=== PATIENT | female | born 1940 | race Caucasian/White ===

== ENCOUNTER 2016-06-13 09:42 | Inpatient (IN) | payer OTHER ==
[~2016-06-13] VITALS: Ht 170.2 cm; Wt 112.5 kg
[~2016-06-13 09:42] MED LIST: AMLODIPINE BESY10 MG PO; BACTERICIN30 GM TP; BACTRIM,SEPT1 TABLET PO; COUMADIN7.5 MG PO; CRESTOR20 MG PO; DULCOLAX10 MG PR; FLEET ENEMA-AD118 ML PR; FLONASE16 G1 BOTH NARES; FLUOXETINE HCL20 M1 PO; GLUCAGEN1 MG IM; GLUTOSE 1537.5 GM PO; IRON325 MG PO; ISOSORBIDE MONO60 MG PO; LEVEMIR FL100 UNITS/ SC; LEVEMIR100 UNIT/2 SC; LIDEX 0.05% CRE60 GM TP; LISINOPRIL30 MG PO; LO-DOSE ASPIRIN81 M1 PO; LO-DOSE ASPIRIN81 M2 PO; LYRICA75 MG PO; METFORMIN HCL1000 MG PO; METOPROLOL SUC100 MG PO; MILK OF MAGN PO; MIRALAX17 GM PO; NITROGLYCERIN0.4 MG SL; NOVOLOG PE100 UNITS/ SC; PERCOCET 10/1 TABLET PO; PERCOCET 7.51 TABLET PO; PROZAC20 MG PO; RANITIDINE HCL150 MG PO; SKELAXIN800 MG PO; TOPROL XL100 MG PO; VENTOLIN HFA18 GM IH; VOLTAREN 1% GE100 GM TP; XARELTO20 MG PO
[2016-06-13 10:16] LABS: POINT-OF-CARE METER ID UU13113702
[2016-06-13 10:47] LABS: POINT-OF-CARE METER ID UU13113702
[2016-06-13 10:51] LABS: HEMATOCRIT 35.2 % (36.0-46.0); MCH 25.1 PG (29.0-34.0); MCHC 31.5 G/DL (30.0-36.0); MCV 79.6 FL (83-99); MEAN PLAT.VOLUME 10.9 uM^3 (9.5-12.4); PLATELET COUNT 189 K/uL (156-360); RBC DIS.WIDTH-CV 16.9 % (11.8-14.6); RBC DIS.WIDTH-SD 47.9 % (39-53); RED BLOOD COUNT 4.42 M/uL (3.80-5.20); WHITE BLOOD COUNT 7.2 K/uL (4.1-10.2)
[2016-06-13 10:52] LABS: EOSINOPHIL (%) 0.4 % (0-5); IMMATURE GRANULOCYTE (%) 0.1 % (0.0-0.7); IMMATURE GRANULOCYTE COUNT 0.1 K/uL; LYMPHOCYTE COUNT 1.5 K/uL (1.0-2.8); MONOCYTE (%) 6.8 % (3-12); MONOCYTE COUNT 0.5 K/uL (0-0.8); NEUTROPHIL (%) 71.5 % (45-76); NEUTROPHIL COUNT 5.1 K/uL (1.8-6.4)
[2016-06-13 11:02] LABS: CHLORIDE 106 mEq/L (99-109); POTASSIUM 4.7 mEq/L (3.7-5.4); SODIUM 139 mEq/L (136-147)
[2016-06-13 11:05] LABS: ANION GAP 11 MEQ/L (2-14); GLUCOSE 175 mg/dL (70-99)
[2016-06-13 11:06] LABS: TOTAL BILIRUBIN 0.4 mg/dL (0.0-1.0)
[2016-06-13 11:08] LABS: ALKALINE PHOSPHATASE 125 IU/L (3-129); GFR ESTIMATE (CALCULATED) 31 mL/min/
[2016-06-13 11:09] LABS: UREA NITROGEN (BUN) 53 mg/dL (9-23)
[2016-06-13 11:17] LABS: TROP-I INTERPRETATION NEGATIVE; TROPONIN-I 0.02 ng/mL (0.0-0.30)
[2016-06-13 12:59] LABS: POINT-OF-CARE METER ID UU13113702
[2016-06-13 13:44] LABS: ADD MIUA? YES; BILIRUBIN NEGATIVE; BLOOD NEGATIVE; GLUCOSE (STRIP) NEGATIVE; KETONES NEGATIVE; LEUKOCYTES NEGATIVE; NITRITE NEGATIVE; PH, URINE 7.5 (5-8); PROTEIN (STRIP) 100; SPECIFIC GRAVITY 1.006 (1.000-1.030); UROBILINOGEN 0.2 MG/DL (0.2-1.0)
[2016-06-13 13:45] LABS: COLOR PALE STRAW ((YELLOW))
[2016-06-13 13:57] LABS: BACTERIA NONE SEEN /HPF; EPITHELIAL CELLS RARE /HPF; MUCUS TRACE /LPF; RED BLOOD CELLS 0-5 /HPF (0-5); UCUL ADDED? NO; WHITE BLOOD CELLS 0-5 /HPF (0-5)
[2016-06-13 14:21] LABS: POINT-OF-CARE METER ID UU13113702
[2016-06-13] MEDS ORDERED: LO-DOSE ASPIRIN81 M2 PO (14:37)
[2016-06-13] MEDS ORDERED: DIABETA2.5 MG PO (14:38)
[2016-06-13] MEDS ORDERED: FERROUS SULFAT325 MG PO ×2 (14:38→14:48)
[2016-06-13] MEDS ORDERED: LASIX40 MG PO (14:39)
[2016-06-13] MEDS ORDERED: ISOSORBIDE MONO60 MG PO (14:39)
[2016-06-13] MEDS ORDERED: LEVEMIR FL100 UNIT/1 SC (14:40)
[2016-06-13] MEDS ORDERED: ZESTRIL20 MG PO (14:41)
[2016-06-13] MEDS ORDERED: TOPROL XL100 MG PO (14:42)
[2016-06-13] MEDS ORDERED: NIFEDIPINE ER60 MG PO (14:43)
[2016-06-13] MEDS ORDERED: ZANTAC150 MG PO (14:43)
[2016-06-13] MEDS ORDERED: ASCORBIC ACID500 M3 PO (14:43)
[2016-06-13] MEDS ORDERED: ELIQUIS5 MG PO (14:45)
[2016-06-13] MEDS ORDERED: ZOLOFT50 MG PO (14:45)
[2016-06-13] MEDS ORDERED: PROBIOTIC1 EAC1 PO (14:50)
[2016-06-13] MEDS ORDERED: LYRICA75 MG PO (14:51)
[2016-06-13] MEDS ORDERED: TYLENOL ARTHRI650 MG PO ×2 (14:52→14:53)
[2016-06-13 14:54] LABS: POINT-OF-CARE METER ID UU13113702
[2016-06-13] MEDS ORDERED: DULCOLAX10 MG PR (14:54)
[2016-06-13] MEDS ORDERED: FLEET MINERAL133 ML PR (14:55)
[2016-06-13] MEDS ORDERED: MILK OF MAGN PO (14:55)
[2016-06-13] MEDS ORDERED: NITROSTAT0.4 MG SL (14:56)
[2016-06-13] MEDS ORDERED: OXYCODONE HCL10 MG PO (14:56)
[2016-06-13] MEDS ORDERED: MIRALAX17 GM PO (14:57)
[2016-06-13 16:01] LABS: POINT-OF-CARE METER ID UU13113702
[2016-06-13 16:47] LABS: BASE EXCESS 0.1 mEq/L (-3 to +3); BICARBONATE 24.7 mEq/L (22-26); CARBOXY HGB 1.1 % (0-5); METHEMOGLOBIN 1.2 % (0-1.5); PCO2 39 mm Hg (35-45); PO2 344 mm Hg (80-100); pH 7.41 (7.35-7.45)
[2016-06-13 16:49] LABS: COMMENTS - BLOOD GASES A+C+; DEVICE PB980; FI02 100 %; MECHANICAL RATE 16 resp/min; MODE A/C; SITE LR
[2016-06-13 16:50] LABS: PEEP 5 CM/H20; TIDAL VOLUME 550 ML
[2016-06-13 18:59] LABS: POINT-OF-CARE METER ID UU13113702
[2016-06-13 21:19] LABS: POINT-OF-CARE METER ID UU13113702
[2016-06-13 21:50] VITALS: BP 167/83
[2016-06-13 22:00] VITALS: BP 167/83
[2016-06-13 23:00] VITALS: BP 177/77
[2016-06-13 23:23] LABS: METH RESISTANT S AUREUS PCR POSITIVE (NEGATIVE)
[2016-06-13 23:25] LABS: PROBE CHECK PASS
[2016-06-13 23:40] LABS: BASE EXCESS 0.1 mEq/L (-3 to +3); BICARBONATE 23.5 mEq/L (22-26); CARBOXY HGB 1.3 % (0-5); COMMENTS - BLOOD GASES A+C+; DEVICE VENT; FI02 80 %; MECHANICAL RATE 16 resp/min; METHEMOGLOBIN 1.4 % (0-1.5); MODE A/C; PCO2 33 mm Hg (35-45); PO2 228 mm Hg (80-100); SITE LR; TOTAL RESP RATE 16 resp/min; pH 7.46 (7.35-7.45)
[2016-06-13 23:41] LABS: PEEP 5 CM/H20; TIDAL VOLUME 550 ML
[2016-06-14] VITALS (24 sets, daily range): BP systolic 118–166; BP diastolic 45–72
[2016-06-14 01:39] LABS: POINT-OF-CARE METER ID UU13113748; POINT-OF-CARE USER ID 609231305
[2016-06-14 05:53] LABS: POINT-OF-CARE METER ID UU13113748
[2016-06-14 09:07] LABS: POINT-OF-CARE METER ID UU13113748
[2016-06-14 09:26] LABS: EOSINOPHIL (%) 0 % (0-5); HEMATOCRIT 36.1 % (36.0-46.0); IMMATURE GRANULOCYTE (%) 0.3 % (0.0-0.7); LYMPHOCYTE COUNT 1.2 K/uL (1.0-2.8); MCHC 31.3 G/DL (30.0-36.0); MCV 79.9 FL (83-99); NEUTROPHIL (%) 74.6 % (45-76); NEUTROPHIL COUNT 6.5 K/uL (1.8-6.4); RBC DIS.WIDTH-CV 17.3 % (11.8-14.6); RBC DIS.WIDTH-SD 50.5 % (39-53); RED BLOOD COUNT 4.52 M/uL (3.80-5.20); WHITE BLOOD COUNT 8.7 K/uL (4.1-10.2)
[2016-06-14 09:27] LABS: ANION GAP 8 MEQ/L (2-14); CHLORIDE 106 MEQ/L (99-109); MAGNESIUM 2.1 mg/dl (1.3-2.7); POTASSIUM 4.8 MEQ/L (3.7-5.4); SAMPLE HEMOLYSIS CHECK 0; SAMPLE ICTERIC CHECK 0; SAMPLE LIPEMIA CHECK 0; SODIUM 138 MEQ/L (136-147)
[2016-06-14 09:31] LABS: USER ID TLW
[2016-06-14 09:33] LABS: GFR ESTIMATE (CALCULATED) 39 mL/min/; UREA NITROGEN (BUN) 45 mg/dL (9-23)
[2016-06-14 09:36] LABS: GLUCOSE 292 mg/dL (70-99); PLATELET COUNT UNABLE TO REPORT K/uL (156-360)
[2016-06-14 12:35] LABS: POINT-OF-CARE METER ID UU13113748
[2016-06-14 18:30] LABS: POINT-OF-CARE METER ID UU13113748
[2016-06-14 23:58] LABS: POINT-OF-CARE METER ID UU13113803
[2016-06-15] VITALS (21 sets, daily range): BP systolic 141–225; BP diastolic 52–108
[2016-06-15 05:11] LABS: POINT-OF-CARE METER ID UU13113748
[2016-06-15 07:07] LABS: ANION GAP 10 MEQ/L (2-14); CHLORIDE 105 MEQ/L (99-109); GFR ESTIMATE (CALCULATED) 36 mL/min/; GLUCOSE 219 mg/dL (70-99); MAGNESIUM 2.1 mg/dl (1.3-2.7); POTASSIUM 5.2 MEQ/L (3.7-5.4); SAMPLE HEMOLYSIS CHECK 0; SAMPLE ICTERIC CHECK 0; SAMPLE LIPEMIA CHECK 0; SODIUM 138 MEQ/L (136-147); UREA NITROGEN (BUN) 49 mg/dL (9-23)
[2016-06-15 07:32] LABS: EOSINOPHIL (%) 0 % (0-5); HEMATOCRIT 34.4 % (36.0-46.0); IMMATURE GRANULOCYTE (%) 0.2 % (0.0-0.7); LYMPHOCYTE COUNT 1.3 K/uL (1.0-2.8); MCH 25.4 PG (29.0-34.0); MCV 79.4 FL (83-99); MONOCYTE (%) 3.6 % (3-12); MONOCYTE COUNT 0.3 K/uL (0-0.8); NEUTROPHIL (%) 82.3 % (45-76); NEUTROPHIL COUNT 7.6 K/uL (1.8-6.4); RBC DIS.WIDTH-CV 17.5 % (11.8-14.6); RED BLOOD COUNT 4.33 M/uL (3.80-5.20); WHITE BLOOD COUNT 9.3 K/uL (4.1-10.2)
[2016-06-15 08:29] LABS: MEAN PLAT.VOLUME 11.7 uM^3 (9.5-12.4); PLAT.SUFFICIENCY ADEQUATE; USER ID TLW
[2016-06-15 08:30] LABS: PLATELET COUNT 197 K/uL (156-360)
[2016-06-16] VITALS (10 sets, daily range): BP systolic 150–186; BP diastolic 60–84
[2016-06-16 06:42] LABS: HEMATOCRIT 36.2 % (36.0-46.0); MCH 25.3 PG (29.0-34.0); MCHC 31.8 G/DL (30.0-36.0); MCV 79.7 FL (83-99); MEAN PLAT.VOLUME 11.5 uM^3 (9.5-12.4); PLATELET COUNT 201 K/uL (156-360); RBC DIS.WIDTH-CV 17.7 % (11.8-14.6); RBC DIS.WIDTH-SD 51.8 % (39-53); RED BLOOD COUNT 4.54 M/uL (3.80-5.20); WHITE BLOOD COUNT 10.8 K/uL (4.1-10.2)
[2016-06-16 06:51] LABS: EOSINOPHIL (%) 0 % (0-5); IMMATURE GRANULOCYTE (%) 0.1 % (0.0-0.7); MONOCYTE (%) 6.6 % (3-12); MONOCYTE COUNT 0.7 K/uL (0-0.8); NEUTROPHIL (%) 74.2 % (45-76)
[2016-06-16 07:06] LABS: ANION GAP 11 MEQ/L (2-14); CHLORIDE 107 MEQ/L (99-109); GFR ESTIMATE (CALCULATED) 39 mL/min/; GLUCOSE 149 mg/dL (70-99); MAGNESIUM 2.2 mg/dl (1.3-2.7); POTASSIUM 4.9 MEQ/L (3.7-5.4); SAMPLE HEMOLYSIS CHECK 1; SAMPLE ICTERIC CHECK 0; SAMPLE LIPEMIA CHECK 0; SODIUM 141 MEQ/L (136-147); UREA NITROGEN (BUN) 51 mg/dL (9-23)
[2016-06-16 08:37] LABS: POINT-OF-CARE METER ID UU14174216; POINT-OF-CARE USER ID NUTSLF44
[2016-06-16 12:21] LABS: POINT-OF-CARE USER ID NUTSLF44
[2016-06-16 20:41] LABS: POINT-OF-CARE USER ID AHSUCEG
[2016-06-17 00:05] VITALS: BP 126/84
[2016-06-17 04:24] VITALS: BP 148/73
[2016-06-17 06:47] LABS: HEMATOCRIT 38.6 % (36.0-46.0); MCH 24.1 PG (29.0-34.0); MCHC 30.6 G/DL (30.0-36.0); MCV 78.9 FL (83-99); MEAN PLAT.VOLUME 11.1 uM^3 (9.5-12.4); PLATELET COUNT 238 K/uL (156-360); RBC DIS.WIDTH-CV 17.3 % (11.8-14.6); RBC DIS.WIDTH-SD 49.4 % (39-53); RED BLOOD COUNT 4.89 M/uL (3.80-5.20); WHITE BLOOD COUNT 12.6 K/uL (4.1-10.2)
[2016-06-17 06:57] LABS: EOSINOPHIL (%) 0.6 % (0-5); EOSINOPHIL COUNT 0.1 K/uL (0-0.3); IMMATURE GRANULOCYTE (%) 0.2 % (0.0-0.7); LYMPHOCYTE COUNT 4.7 K/uL (1.0-2.8); MONOCYTE (%) 12.2 % (3-12); MONOCYTE COUNT 1.5 K/uL (0-0.8); NEUTROPHIL (%) 49.5 % (45-76); NEUTROPHIL COUNT 6.2 K/uL (1.8-6.4)
[2016-06-17 07:11] LABS: ANION GAP 8 MEQ/L (2-14); CHLORIDE 105 MEQ/L (99-109); GFR ESTIMATE (CALCULATED) 36 mL/min/; MAGNESIUM 1.9 mg/dl (1.3-2.7); POTASSIUM 4.1 MEQ/L (3.7-5.4); SAMPLE HEMOLYSIS CHECK 0; SAMPLE ICTERIC CHECK 0; SAMPLE LIPEMIA CHECK 0; SODIUM 140 MEQ/L (136-147); UREA NITROGEN (BUN) 52 mg/dL (9-23)
[2016-06-17 07:13] LABS: GLUCOSE 104 mg/dL (70-99)
[2016-06-17 08:00] VITALS: BP 114/64
[2016-06-17 11:50] VITALS: BP 148/50
[2016-06-17 16:08] LABS: HEMATOCRIT 34.3 % (36.0-46.0); MCH 25.1 PG (29.0-34.0); MCHC 31.5 G/DL (30.0-36.0); MCV 79.6 FL (83-99); MEAN PLAT.VOLUME 11.1 uM^3 (9.5-12.4); PLATELET COUNT 206 K/uL (156-360); RBC DIS.WIDTH-SD 49.8 % (39-53); RED BLOOD COUNT 4.31 M/uL (3.80-5.20); WHITE BLOOD COUNT 9.6 K/uL (4.1-10.2)
[2016-06-17 16:10] VITALS: BP 155/72
[2016-06-17 19:30] VITALS: BP 137/67
[2016-06-18] VITALS (9 sets, daily range): BP systolic 97–178; BP diastolic 57–79
[2016-06-18 06:17] LABS: HEMATOCRIT 31.5 % (36.0-46.0); MCH 25.1 PG (29.0-34.0); MCHC 31.4 G/DL (30.0-36.0); MCV 79.7 FL (83-99); MEAN PLAT.VOLUME 11.7 uM^3 (9.5-12.4); PLATELET COUNT 195 K/uL (156-360); RBC DIS.WIDTH-CV 16.8 % (11.8-14.6); RBC DIS.WIDTH-SD 49.6 % (39-53); RED BLOOD COUNT 3.95 M/uL (3.80-5.20); WHITE BLOOD COUNT 11.1 K/uL (4.1-10.2)
[2016-06-18 06:42] LABS: ANION GAP 7 MEQ/L (2-14); CHLORIDE 106 MEQ/L (99-109); GFR ESTIMATE (CALCULATED) 43 mL/min/; GLUCOSE 146 mg/dL (70-99); MAGNESIUM 1.9 mg/dl (1.3-2.7); POTASSIUM 4.2 MEQ/L (3.7-5.4); SAMPLE HEMOLYSIS CHECK 0; SAMPLE ICTERIC CHECK 0; SAMPLE LIPEMIA CHECK 0; SODIUM 140 MEQ/L (136-147); TOTAL BILIRUBIN 0.4 MG/DL (0.0-1.0); UREA NITROGEN (BUN) 71 mg/dL (9-23)
[2016-06-18 06:45] LABS: ALKALINE PHOSPHATASE 65 IU/L (3-129)
[2016-06-18 06:52] LABS: EOSINOPHIL (%) 1.4 % (0-5); EOSINOPHIL COUNT 0.2 K/uL (0-0.3); IMMATURE GRANULOCYTE (%) 0.1 % (0.0-0.7); LYMPHOCYTE COUNT 4.2 K/uL (1.0-2.8); MONOCYTE (%) 11.9 % (3-12); MONOCYTE COUNT 1.3 K/uL (0-0.8); NEUTROPHIL (%) 48.6 % (45-76); NEUTROPHIL COUNT 5.4 K/uL (1.8-6.4)
[2016-06-19 03:16] VITALS: BP 128/80
[2016-06-19 06:54] LABS: HEMATOCRIT 33.2 % (36.0-46.0); MCH 23.9 PG (29.0-34.0); MCHC 30.1 G/DL (30.0-36.0); MCV 79.4 FL (83-99); MEAN PLAT.VOLUME 11.4 uM^3 (9.5-12.4); PLATELET COUNT 207 K/uL (156-360); RBC DIS.WIDTH-CV 16.8 % (11.8-14.6); RED BLOOD COUNT 4.18 M/uL (3.80-5.20); WHITE BLOOD COUNT 12.1 K/uL (4.1-10.2)
[2016-06-19 07:25] LABS: ANION GAP 9 MEQ/L (2-14); CHLORIDE 108 MEQ/L (99-109); GFR ESTIMATE (CALCULATED) 52 mL/min/; GLUCOSE 110 mg/dL (70-99); MAGNESIUM 1.9 mg/dl (1.3-2.7); POTASSIUM 4.3 MEQ/L (3.7-5.4); SAMPLE HEMOLYSIS CHECK 0; SAMPLE ICTERIC CHECK 0; SAMPLE LIPEMIA CHECK 0; SODIUM 142 MEQ/L (136-147); UREA NITROGEN (BUN) 61 mg/dL (9-23)
[2016-06-19 07:29] LABS: EOSINOPHIL (%) 1.6 % (0-5); EOSINOPHIL COUNT 0.2 K/uL (0-0.3); IMMATURE GRANULOCYTE (%) 0.2 % (0.0-0.7); LYMPHOCYTE COUNT 3.6 K/uL (1.0-2.8); MONOCYTE (%) 10.6 % (3-12); MONOCYTE COUNT 1.3 K/uL (0-0.8)
[2016-06-19 07:45] VITALS: BP 146/66
[2016-06-19 12:07] VITALS: BP 118/58
[2016-06-19 16:18] VITALS: BP 146/60
[2016-06-19 20:12] VITALS: BP 167/71
[2016-06-20 00:15] VITALS: BP 177/73
[2016-06-20 04:19] VITALS: BP 134/75
[2016-06-20 07:27] VITALS: BP 177/85
[2016-06-20 07:31] LABS: HEMATOCRIT 31.1 % (36.0-46.0); MCH 24.9 PG (29.0-34.0); MCHC 31.2 G/DL (30.0-36.0); MCV 79.9 FL (83-99); MEAN PLAT.VOLUME 11.1 uM^3 (9.5-12.4); PLATELET COUNT 175 K/uL (156-360); RBC DIS.WIDTH-CV 16.9 % (11.8-14.6); RBC DIS.WIDTH-SD 49.4 % (39-53); RED BLOOD COUNT 3.89 M/uL (3.80-5.20)
[2016-06-20 07:48] LABS: EOSINOPHIL (%) 2.7 % (0-5); EOSINOPHIL COUNT 0.3 K/uL (0-0.3); IMMATURE GRANULOCYTE (%) 0.3 % (0.0-0.7); LYMPHOCYTE COUNT 3.5 K/uL (1.0-2.8); MONOCYTE COUNT 0.8 K/uL (0-0.8); NEUTROPHIL (%) 54.2 % (45-76); NEUTROPHIL COUNT 5.4 K/uL (1.8-6.4)
[2016-06-20 07:58] LABS: ANION GAP 8 MEQ/L (2-14); CHLORIDE 109 MEQ/L (99-109); GFR ESTIMATE (CALCULATED) 52 mL/min/; GLUCOSE 103 mg/dL (70-99); POTASSIUM 4.3 MEQ/L (3.7-5.4); SAMPLE HEMOLYSIS CHECK 0; SAMPLE ICTERIC CHECK 0; SAMPLE LIPEMIA CHECK 0; SODIUM 143 MEQ/L (136-147); UREA NITROGEN (BUN) 57 mg/dL (9-23)
[2016-06-20] MEDS ORDERED: IMDUR60 MG PO (12:35)
[2016-06-20] MEDS ORDERED: NOVOLOG PE100 UNITS/ SC (12:37)
[2016-06-20] MEDS ORDERED: PROCARDIA XL90 MG PO (12:38)
== END 2016-06-20 15:00 | DRG 208 ==
LOC: EME 09:42 → EDOF 15:32 → 4EAST 15:32 → 4WEST 15:32 → EDOF 20:32 → 4WEST 21:47 → 4EAST 06-15 22:50 → 2EAST 06-16 12:12
PROVIDERS: Emergency Medicine; Internal Medicine; Internal Medicine Nephrology; Surgery
DX: J96.00 Acute respiratory failure, unspecified whether with hypoxia or hypercapnia (principal); N17.9 Acute kidney failure, unspecified; J44.9 Chronic obstructive pulmonary disease, unspecified; I95.9 Hypotension, unspecified; E11.649 Type 2 diabetes mellitus with hypoglycemia without coma; I48.0 Paroxysmal atrial fibrillation; Z89.612 Acquired absence of left leg above knee; T78.3XXA Angioneurotic edema, initial encounter; J39.2 Other diseases of pharynx; S00.03XA Contusion of scalp, initial encounter; W06.XXXA Fall from bed, initial encounter; Y92.122 Bedroom in nursing home as the place of occurrence of the external cause; I25.10 Atherosclerotic heart disease of native coronary artery without angina pectoris; Z95.1 Presence of aortocoronary bypass graft; Z98.84 Bariatric surgery status; E66.9 Obesity, unspecified; E78.5 Hyperlipidemia, unspecified; G89.29 Other chronic pain; R55 Syncope and collapse; M19.90 Unspecified osteoarthritis, unspecified site; G47.33 Obstructive sleep apnea (adult) (pediatric); I73.9 Peripheral vascular disease, unspecified; J98.8 Other specified respiratory disorders; M54.5 Low back pain; R04.0 Epistaxis; I25.2 Old myocardial infarction; I10 Essential (primary) hypertension; T46.4X5A Adverse effect of angiotensin-converting-enzyme inhibitors, initial encounter; F32.9 Major depressive disorder, single episode, unspecified; Y84.8 Other medical procedures as the cause of abnormal reaction of the patient, or of later complication, without mention of misadventure at the time of the procedure; Z68.38 Body mass index [BMI] 38.0-38.9, adult
CPT/HCPCS: 36600; 70450; 71010; 71020; 80048; 80053; 81003; 82803; 82948; 83605; 83735; 84100; 84484; 85025; 85025 91; 85027; 86850; 86870; 86880 90; 86885 90; 86900; 86900 90; 86901; 86901 90; 86904 90; 86906 90; 86920; 87070; 87205; 87641; 94002; 94003; 94799; 99281; 99285; J0360; J1100; J1200; J1644; J1650; J1815; J1940; J2704; J2920; J7030; J7040; J7120; J7512; S0028

== ENCOUNTER 2016-07-27 10:18 | Inpatient (IN) | payer OTHER ==
[~2016-07-27] VITALS: Ht 170.2 cm; Wt 125.5 kg
[~2016-07-27 10:18] MED LIST changes: +ASCORBIC ACID500 M3 PO; +DIABETA2.5 MG PO; +ELIQUIS5 MG PO; +FERROUS SULFAT325 MG PO; +FLEET MINERAL133 ML PR; +IMDUR60 MG PO; +LASIX40 MG PO; +LEVEMIR FL100 UNIT/1 SC; +NIFEDIPINE ER60 MG PO; +NITROSTAT0.4 MG SL; +OXYCODONE HCL10 MG PO; +PROBIOTIC1 EAC1 PO; +PROCARDIA XL90 MG PO; +TYLENOL ARTHRI650 MG PO; +ZANTAC150 MG PO; +ZESTRIL20 MG PO; +ZOLOFT50 MG PO
[2016-07-27 11:26] LABS: BASOPHIL COUNT 0.1 K/uL (0-0.1); EOSINOPHIL (%) 0.9 % (0-5); EOSINOPHIL COUNT 0.1 K/uL (0-0.3); IMMATURE GRANULOCYTE (%) 0.3 % (0.0-0.7); INSTRUMENT ABS NEUTROPHIL CT 5.6 K/uL; LYMPHOCYTE COUNT 2.4 K/uL (1.0-2.8); MCH 24.4 PG (29.0-34.0); MCV 81.3 FL (83-99); MEAN PLAT.VOLUME 11.3 uM^3 (9.5-12.4); MONOCYTE (%) 11.5 % (3-12); MONOCYTE COUNT 1.1 K/uL (0-0.8); NEUTROPHIL (%) 61.1 % (45-76); NEUTROPHIL COUNT 5.6 K/uL (1.8-6.4); PLATELET COUNT 231 K/uL (156-360); RBC DIS.WIDTH-CV 18.3 % (11.8-14.6); RBC DIS.WIDTH-SD 54.2 % (39-53); RED BLOOD COUNT 4.06 M/uL (3.80-5.20)
[2016-07-27 11:31] LABS: WHITE BLOOD COUNT 9.2 K/uL (4.1-10.2)
[2016-07-27 11:36] LABS: CHLORIDE 109 mEq/L (99-109); INTER. NORMALIZED RATIO 1.2; POTASSIUM 4.2 mEq/L (3.7-5.4); PROTHROMBIN TIME 12.6 (9.2-11.2); SODIUM 142 mEq/L (136-147)
[2016-07-27 11:38] LABS: GLUCOSE 131 mg/dL (70-99)
[2016-07-27 11:40] LABS: ANION GAP 11 MEQ/L (2-14); TOTAL BILIRUBIN 0.3 mg/dL (0.0-1.0)
[2016-07-27 11:42] LABS: ALKALINE PHOSPHATASE 112 IU/L (3-129); GFR ESTIMATE (CALCULATED) 31 mL/min/
[2016-07-27 11:43] LABS: UREA NITROGEN (BUN) 75 mg/dL (9-23)
[2016-07-27 11:46] LABS: TROP-I INTERPRETATION NEGATIVE; TROPONIN-I 0.04 ng/mL (0.0-0.30)
[2016-07-27] MEDS ORDERED: DAKINS SOLUTIO473 ML TP ×2 (13:24→14:19)
[2016-07-27] MEDS ORDERED: INVANZ1 GM IV (13:25)
[2016-07-27] MEDS ORDERED: TOPROL XL100 MG PO (13:26)
[2016-07-27] MEDS ORDERED: LASIX40 MG PO (13:26)
[2016-07-27] MEDS ORDERED: NIFEDIPINE ER90 MG PO (13:28)
[2016-07-27] MEDS ORDERED: IMDUR60 MG PO (13:31)
[2016-07-27] MEDS ORDERED: GLUCOPHAGE500 MG PO (13:33)
[2016-07-27] MEDS ORDERED: PROBIOTIC250 MG PO (13:34)
[2016-07-27] MEDS ORDERED: NOVOLOG PE100 UNITS/ SC (13:40)
[2016-07-27] MEDS ORDERED: GLUCAGON1 MG IM (13:46)
[2016-07-27] MEDS ORDERED: GLUCOSE GEL15 GM PO (13:48)
[2016-07-27 22:00] VITALS: BP 178/81
[2016-07-27 22:12] VITALS: BP 178/81
[2016-07-28] VITALS (7 sets, daily range): BP systolic 132–185; BP diastolic 61–86
[2016-07-28 14:42] LABS: METH RESISTANT S AUREUS PCR NEGATIVE (NEGATIVE)
[2016-07-28 14:44] LABS: PROBE CHECK PASS; SPECIMEN PROCESSING CONTROL PASS
[2016-07-29 03:57] VITALS: BP 124/58
[2016-07-29 05:19] LABS: EOSINOPHIL (%) 0.2 % (0-5); HEMATOCRIT 31.1 % (36.0-46.0); IMMATURE GRANULOCYTE (%) 0.6 % (0.0-0.7); IMMATURE GRANULOCYTE COUNT 0.1 K/uL; INSTRUMENT ABS NEUTROPHIL CT 6.9 K/uL; LYMPHOCYTE COUNT 2.2 K/uL (1.0-2.8); MCH 24.1 PG (29.0-34.0); MCHC 29.9 G/DL (30.0-36.0); MCV 80.6 FL (83-99); MEAN PLAT.VOLUME 11.8 uM^3 (9.5-12.4); MONOCYTE (%) 12.7 % (3-12); MONOCYTE COUNT 1.3 K/uL (0-0.8); NEUTROPHIL (%) 65.4 % (45-76); NEUTROPHIL COUNT 6.9 K/uL (1.8-6.4); PLATELET COUNT 205 K/uL (156-360); RBC DIS.WIDTH-CV 18.5 % (11.8-14.6); RBC DIS.WIDTH-SD 53.5 % (39-53); RED BLOOD COUNT 3.86 M/uL (3.80-5.20); WHITE BLOOD COUNT 10.5 K/uL (4.1-10.2)
[2016-07-29 05:39] LABS: ANION GAP 8 MEQ/L (2-14); CHLORIDE 107 MEQ/L (99-109); GFR ESTIMATE (CALCULATED) 31 mL/min/; GLUCOSE 155 mg/dL (70-99); POTASSIUM 3.8 MEQ/L (3.7-5.4); SAMPLE HEMOLYSIS CHECK 0; SAMPLE ICTERIC CHECK 0; SAMPLE LIPEMIA CHECK 0; SODIUM 140 MEQ/L (136-147); UREA NITROGEN (BUN) 73 mg/dL (9-23)
[2016-07-29 07:40] VITALS: BP 160/70
[2016-07-29 11:17] VITALS: BP 142/65
[2016-07-29 11:26] LABS: POINT-OF-CARE METER ID UU14188577
[2016-07-29 15:04] VITALS: BP 157/71
[2016-07-29 16:51] LABS: POINT-OF-CARE METER ID UU14188577
[2016-07-29 19:45] VITALS: BP 159/67
[2016-07-29 23:39] VITALS: BP 153/66
[2016-07-30] VITALS (7 sets, daily range): BP systolic 136–194; BP diastolic 64–92
[2016-07-30 16:19] LABS: POINT-OF-CARE METER ID UU14188577
[2016-07-31 01:45] VITALS: BP 172/74
[2016-07-31 03:49] VITALS: BP 150/67
[2016-07-31 06:27] LABS: POINT-OF-CARE METER ID UU14188577
[2016-07-31 06:40] LABS: ANION GAP 8 MEQ/L (2-14); CHLORIDE 113 MEQ/L (99-109); GFR ESTIMATE (CALCULATED) 52 mL/min/; GLUCOSE 136 mg/dL (70-99); POTASSIUM 4.3 MEQ/L (3.7-5.4); SAMPLE HEMOLYSIS CHECK 0; SAMPLE ICTERIC CHECK 0; SAMPLE LIPEMIA CHECK 0; SODIUM 147 MEQ/L (136-147); UREA NITROGEN (BUN) 54 mg/dL (9-23)
[2016-07-31 07:41] VITALS: BP 145/65
[2016-07-31 11:31] VITALS: BP 169/74
[2016-07-31 12:02] LABS: POINT-OF-CARE METER ID UU14188577
[2016-07-31] MEDS ORDERED: KEFLEX500 MG PO (12:57)
[2016-07-31] MEDS ORDERED: LOSARTAN POTASS25 MG PO (12:58)
[2016-07-31 16:17] VITALS: BP 170/78
[2016-07-31 17:46] LABS: POINT-OF-CARE METER ID UU14188577
== END 2016-07-31 19:40 | DRG 603 ==
LOC: EME 10:18 → 3EAST 13:40 → EDOF 13:40 → 3EAST 21:40
PROVIDERS: Emergency Medicine; Internal Medicine
DX: L03.113 Cellulitis of right upper limb (principal); N61.0 Mastitis without abscess; M79.3 Panniculitis, unspecified; N17.9 Acute kidney failure, unspecified; I13.0 Hypertensive heart and chronic kidney disease with heart failure and stage 1 through stage 4 chronic kidney disease, or unspecified chronic kidney disease; I50.32 Chronic diastolic (congestive) heart failure; E11.22 Type 2 diabetes mellitus with diabetic chronic kidney disease; N18.3 Chronic kidney disease, stage 3 (moderate); I89.0 Lymphedema, not elsewhere classified; E66.01 Morbid (severe) obesity due to excess calories; I48.2 Chronic atrial fibrillation; I25.10 Atherosclerotic heart disease of native coronary artery without angina pectoris; I87.2 Venous insufficiency (chronic) (peripheral); L30.8 Other specified dermatitis; G47.33 Obstructive sleep apnea (adult) (pediatric); I44.1 Atrioventricular block, second degree; I44.5 Left posterior fascicular block; E78.5 Hyperlipidemia, unspecified; J44.9 Chronic obstructive pulmonary disease, unspecified; Z68.41 Body mass index [BMI] 40.0-44.9, adult; Z89.612 Acquired absence of left leg above knee; Z95.1 Presence of aortocoronary bypass graft; Z98.84 Bariatric surgery status; I25.2 Old myocardial infarction; Z79.01 Long term (current) use of anticoagulants
CPT/HCPCS: 71010; 76642; 80048; 80053; 82948; 83880; 84484; 85025; 85610; 85730; 87641; 93005; 93306; 93971; 94799; 99202; 99281; 99285; J0360; J0690; J7050

== ENCOUNTER 2016-08-04 18:27 | Inpatient (IN) | payer OTHER ==
[~2016-08-04] VITALS: Ht 170.2 cm; Wt 126.6 kg
[~2016-08-04 18:27] MED LIST changes: +DAKINS SOLUTIO473 ML TP; +GLUCAGON1 MG IM; +GLUCOPHAGE500 MG PO; +GLUCOSE GEL15 GM PO; +INVANZ1 GM IV; +KEFLEX500 MG PO; +LOSARTAN POTASS25 MG PO; +NIFEDIPINE ER90 MG PO; +PROBIOTIC250 MG PO
[2016-08-04 19:21] LABS: HEMATOCRIT 33.3 % (36.0-46.0); MCH 24.5 PG (29.0-34.0); MCHC 30.6 G/DL (30.0-36.0); MCV 79.9 FL (83-99); MEAN PLAT.VOLUME 10.9 uM^3 (9.5-12.4); PLATELET COUNT 209 K/uL (156-360); RBC DIS.WIDTH-CV 18.3 % (11.8-14.6); RED BLOOD COUNT 4.17 M/uL (3.80-5.20)
[2016-08-04 19:23] LABS: WHITE BLOOD COUNT 13.6 K/uL (4.1-10.2)
[2016-08-04 19:28] LABS: CHLORIDE 112 mEq/L (99-109); POTASSIUM 4.3 mEq/L (3.7-5.4); SODIUM 144 mEq/L (136-147)
[2016-08-04 19:30] LABS: GLUCOSE 146 mg/dL (70-99)
[2016-08-04 19:31] LABS: ANION GAP 10 MEQ/L (2-14)
[2016-08-04 19:34] LABS: GFR ESTIMATE (CALCULATED) 47 mL/min/
[2016-08-04 19:35] LABS: UREA NITROGEN (BUN) 37 mg/dL (9-23)
[2016-08-04 19:42] LABS: TROP-I INTERPRETATION NEGATIVE; TROPONIN-I 0.01 ng/mL (0.0-0.30)
[2016-08-04] MEDS ORDERED: LOSARTAN POTASS50 MG PO (21:25)
[2016-08-04] MEDS ORDERED: CEPHALEXIN500 MG PO (21:30)
[2016-08-04] MEDS ORDERED: DAKINS SOLUTIO473 M1 TP (21:31)
[2016-08-04] MEDS ORDERED: TYLENOL REGULA325 MG PO (21:34)
[2016-08-04 22:26] VITALS: BP 174/76
[2016-08-05 04:34] VITALS: BP 178/84
[2016-08-05 06:29] LABS: POINT-OF-CARE METER ID UU14162508
[2016-08-05 08:00] VITALS: BP 130/83
[2016-08-05 08:29] LABS: D-DIMER ELISA 1.65 mg/L FEU (< 0.57)
[2016-08-05 12:04] LABS: POINT-OF-CARE METER ID UU14162508
[2016-08-05 12:22] LABS: POINT-OF-CARE METER ID UU14162508
[2016-08-05 15:52] LABS: METH RESISTANT S AUREUS PCR NEGATIVE (NEGATIVE)
[2016-08-05 15:55] LABS: PROBE CHECK PASS; SPECIMEN PROCESSING CONTROL PASS
[2016-08-05 16:00] VITALS: BP 165/97
[2016-08-05 16:31] LABS: POINT-OF-CARE METER ID UU14162508
[2016-08-05 16:31] LABS: POINT-OF-CARE METER ID UU14162508
[2016-08-05 19:52] VITALS: BP 170/78
[2016-08-05 23:08] LABS: POINT-OF-CARE METER ID UU14162508
[2016-08-06 00:05] VITALS: BP 176/84
[2016-08-06 04:21] VITALS: BP 188/89
[2016-08-06 06:23] LABS: POINT-OF-CARE METER ID UU14162508
[2016-08-06 07:01] VITALS: BP 182/82
[2016-08-06 11:35] LABS: POINT-OF-CARE METER ID UU14162508
[2016-08-06 12:01] VITALS: BP 184/81
[2016-08-06 16:15] VITALS: BP 170/83
[2016-08-06 16:31] LABS: POINT-OF-CARE METER ID UU14162508
[2016-08-06 23:37] VITALS: BP 176/72
[2016-08-07 03:21] VITALS: BP 170/62
[2016-08-07 08:00] VITALS: BP 178/81
[2016-08-07 12:00] VITALS: BP 148/67
[2016-08-07 16:00] VITALS: BP 171/79
[2016-08-07 20:12] VITALS: BP 150/70
[2016-08-08 07:33] LABS: ANION GAP 8 MEQ/L (2-14); CHLORIDE 106 MEQ/L (99-109); GFR ESTIMATE (CALCULATED) 34 mL/min/; GLUCOSE 132 mg/dL (70-99); SAMPLE HEMOLYSIS CHECK 0; SAMPLE ICTERIC CHECK 0; SAMPLE LIPEMIA CHECK 0; SODIUM 141 MEQ/L (136-147); UREA NITROGEN (BUN) 34 mg/dL (9-23)
[2016-08-08 08:00] VITALS: BP 159/68
[2016-08-08 12:00] VITALS: BP 174/79
[2016-08-08 12:07] LABS: POINT-OF-CARE METER ID UU14162508
[2016-08-08 16:03] VITALS: BP 145/67
[2016-08-08 16:17] LABS: POINT-OF-CARE METER ID UU14162508
[2016-08-08 22:18] VITALS: BP 130/61
[2016-08-08 22:34] LABS: POINT-OF-CARE METER ID UU14162508
[2016-08-08 23:57] VITALS: BP 128/62
[2016-08-09 03:53] VITALS: BP 145/66
[2016-08-09 07:10] VITALS: BP 142/67
[2016-08-09 07:38] LABS: ANION GAP 9 MEQ/L (2-14); CHLORIDE 108 MEQ/L (99-109); GFR ESTIMATE (CALCULATED) 34 mL/min/; GLUCOSE 122 mg/dL (70-99); POTASSIUM 4.7 MEQ/L (3.7-5.4); SAMPLE HEMOLYSIS CHECK 0; SAMPLE ICTERIC CHECK 0; SAMPLE LIPEMIA CHECK 0; SODIUM 141 MEQ/L (136-147); UREA NITROGEN (BUN) 36 mg/dL (9-23)
[2016-08-09 11:59] LABS: POINT-OF-CARE METER ID UU14162508
[2016-08-09 12:00] VITALS: BP 162/60
[2016-08-09 16:32] VITALS: BP 127/65
[2016-08-09 19:43] VITALS: BP 150/95
[2016-08-09 23:02] VITALS: BP 145/73
[2016-08-10 02:57] VITALS: BP 156/71
[2016-08-10 08:12] VITALS: BP 154/69
[2016-08-10 10:54] VITALS: BP 148/69
== END 2016-08-10 11:27 | DRG 194 ==
LOC: EME 18:27 → EDOF 20:20 → 2EAST 20:20
PROVIDERS: Emergency Medicine; Internal Medicine
DX: J18.9 Pneumonia, unspecified organism (principal); Z68.41 Body mass index [BMI] 40.0-44.9, adult; I50.30 Unspecified diastolic (congestive) heart failure; J81.1 Chronic pulmonary edema; J90 Pleural effusion, not elsewhere classified; J98.11 Atelectasis; I25.10 Atherosclerotic heart disease of native coronary artery without angina pectoris; I12.9 Hypertensive chronic kidney disease with stage 1 through stage 4 chronic kidney disease, or unspecified chronic kidney disease; N61.0 Mastitis without abscess; N18.3 Chronic kidney disease, stage 3 (moderate); I44.1 Atrioventricular block, second degree; E11.22 Type 2 diabetes mellitus with diabetic chronic kidney disease; G47.30 Sleep apnea, unspecified; E66.01 Morbid (severe) obesity due to excess calories; I48.0 Paroxysmal atrial fibrillation; E78.5 Hyperlipidemia, unspecified; I48.2 Chronic atrial fibrillation; R00.1 Bradycardia, unspecified; Z95.5 Presence of coronary angioplasty implant and graft; Z98.84 Bariatric surgery status; Z89.612 Acquired absence of left leg above knee; Z79.01 Long term (current) use of anticoagulants; Z82.61 Family history of arthritis
CPT/HCPCS: 71020; 71275; 80048; 82565; 82948; 84484; 84520; 85027; 85379; 87040; 87081; 87641; 93005; 94799; 99281; 99284; J0456; J1815; J1940; J2543; J7030; J7050

== ENCOUNTER 2016-09-19 08:43 | Inpatient (IN) | payer OTHER ==
[~2016-09-19] VITALS: Ht 170.2 cm; Wt 133.2 kg
[~2016-09-19 08:43] MED LIST changes: +CEPHALEXIN500 MG PO; +DAKINS SOLUTIO473 M1 TP; +LOSARTAN POTASS50 MG PO; +TYLENOL REGULA325 MG PO
[2016-09-19 09:40] LABS: EOSINOPHIL (%) 0.6 % (0-5); EOSINOPHIL COUNT 0.1 K/uL (0-0.3); HEMATOCRIT 35.2 % (36.0-46.0); IMMATURE GRANULOCYTE (%) 0.4 % (0.0-0.7); INSTRUMENT ABS NEUTROPHIL CT 4.8 K/uL; LYMPHOCYTE COUNT 2.2 K/uL (1.0-2.8); MCH 23.9 PG (29.0-34.0); MCV 82.6 FL (83-99); MEAN PLAT.VOLUME 11.7 uM^3 (9.5-12.4); MONOCYTE (%) 11.4 % (3-12); MONOCYTE COUNT 0.9 K/uL (0-0.8); NEUTROPHIL (%) 60.3 % (45-76); NEUTROPHIL COUNT 4.8 K/uL (1.8-6.4); PLATELET COUNT 165 K/uL (156-360); RBC DIS.WIDTH-CV 18.1 % (11.8-14.6); RBC DIS.WIDTH-SD 54.8 % (39-53); RED BLOOD COUNT 4.26 M/uL (3.80-5.20)
[2016-09-19 09:52] LABS: INTER. NORMALIZED RATIO 1.3; PTT 32.4 (25-32)
[2016-09-19 09:53] LABS: CHLORIDE 110 mEq/L (99-109); POTASSIUM 5.6 mEq/L (3.7-5.4); SODIUM 139 mEq/L (136-147)
[2016-09-19 09:54] LABS: GLUCOSE 128 mg/dL (70-99)
[2016-09-19 09:56] LABS: ANION GAP 8 MEQ/L (2-14)
[2016-09-19 09:58] LABS: GFR ESTIMATE (CALCULATED) 26 mL/min/
[2016-09-19 09:59] LABS: UREA NITROGEN (BUN) 78 mg/dL (9-23)
[2016-09-19 10:02] LABS: TROP-I INTERPRETATION NEGATIVE; TROPONIN-I 0.01 ng/mL (0.0-0.30)
[2016-09-19 11:18] LABS: ADD MIUA? YES; BILIRUBIN NEGATIVE; BLOOD NEGATIVE; COLOR YELLOW ((YELLOW)); GLUCOSE (STRIP) 50; KETONES NEGATIVE; LEUKOCYTES NEGATIVE; NITRITE NEGATIVE; PROTEIN (STRIP) 100; SPECIFIC GRAVITY 1.014 (1.000-1.030); UROBILINOGEN 0.2 MG/DL (0.2-1.0)
[2016-09-19 11:21] LABS: BACTERIA NONE SEEN /HPF; EPITHELIAL CELLS RARE /HPF; MUCUS TRACE /LPF; RED BLOOD CELLS 0-5 /HPF (0-5); UCUL ADDED? NO; WHITE BLOOD CELLS 0-5 /HPF (0-5)
[2016-09-19] MEDS ORDERED: DOXEPIN HCL25 MG PO (14:13)
[2016-09-19] MEDS ORDERED: FUROSEMIDE40 MG PO (14:14)
[2016-09-19] MEDS ORDERED: KLOR-CON M1010 MEQ PO (14:15)
[2016-09-19] MEDS ORDERED: RISPERDAL0.25 MG PO (14:16)
[2016-09-19] MEDS ORDERED: ZOLOFT25 MG PO (14:17)
[2016-09-19] MEDS ORDERED: METOPROLOL TART25 MG PO (14:20)
[2016-09-19] MEDS ORDERED: FLEET ENEMA-AD118 ML PR (14:23)
[2016-09-19] MEDS ORDERED: GLUCAGEN1 MG IM (14:24)
[2016-09-19] MEDS ORDERED: GLUCOSE GEL15 GM PO (14:25)
[2016-09-19 16:31] LABS: POINT-OF-CARE METER ID UU13113702
[2016-09-19 18:00] VITALS: BP 210/94
[2016-09-19 18:40] VITALS: BP 170/90
[2016-09-19 21:32] VITALS: BP 176/82
[2016-09-20] VITALS (12 sets, daily range): BP systolic 132–166; BP diastolic 60–93
[2016-09-20 09:41] LABS: ANION GAP 8 MEQ/L (2-14); CHLORIDE 111 MEQ/L (99-109); GFR ESTIMATE (CALCULATED) 29 mL/min/; GLUCOSE 134 mg/dL (70-99); POTASSIUM 5.2 MEQ/L (3.7-5.4); SAMPLE HEMOLYSIS CHECK 0; SAMPLE ICTERIC CHECK 0; SAMPLE LIPEMIA CHECK 0; SODIUM 141 MEQ/L (136-147); UREA NITROGEN (BUN) 71 mg/dL (9-23)
[2016-09-20 12:08] LABS: POINT-OF-CARE METER ID UU14162508
[2016-09-20 16:06] LABS: POINT-OF-CARE METER ID UU14162508
[2016-09-20 21:27] LABS: POINT-OF-CARE METER ID UU13113725
[2016-09-21] VITALS (9 sets, daily range): BP systolic 142–195; BP diastolic 64–86
[2016-09-21 06:23] LABS: POINT-OF-CARE METER ID UU13113725
[2016-09-21 06:54] LABS: ANION GAP 7 MEQ/L (2-14); CHLORIDE 110 MEQ/L (99-109); GFR ESTIMATE (CALCULATED) 34 mL/min/; GLUCOSE 114 mg/dL (70-99); POTASSIUM 4.7 MEQ/L (3.7-5.4); SAMPLE HEMOLYSIS CHECK 0; SAMPLE ICTERIC CHECK 0; SAMPLE LIPEMIA CHECK 0; SODIUM 141 MEQ/L (136-147); UREA NITROGEN (BUN) 74 mg/dL (9-23)
[2016-09-21 10:58] LABS: POINT-OF-CARE METER ID UU13113725
[2016-09-21 16:12] LABS: POINT-OF-CARE METER ID UU13113725
[2016-09-21 21:16] LABS: POINT-OF-CARE METER ID UU13113725
[2016-09-22 03:56] VITALS: BP 156/70
[2016-09-22 05:51] LABS: POINT-OF-CARE METER ID UU13113725
[2016-09-22 06:59] LABS: ANION GAP 10 MEQ/L (2-14); CHLORIDE 106 MEQ/L (99-109); GFR ESTIMATE (CALCULATED) 36 mL/min/; GLUCOSE 108 mg/dL (70-99); POTASSIUM 4.5 MEQ/L (3.7-5.4); SAMPLE HEMOLYSIS CHECK 0; SAMPLE ICTERIC CHECK 0; SAMPLE LIPEMIA CHECK 0; SODIUM 138 MEQ/L (136-147); UREA NITROGEN (BUN) 73 mg/dL (9-23)
[2016-09-22 07:05] VITALS: BP 146/71
[2016-09-22 11:25] LABS: POINT-OF-CARE METER ID UU13113725
[2016-09-22 15:23] VITALS: BP 156/79
[2016-09-22 23:08] VITALS: BP 148/66
[2016-09-23] VITALS (10 sets, daily range): BP systolic 126–221; BP diastolic 60–102
[2016-09-23 07:10] LABS: ANION GAP 8 MEQ/L (2-14); CHLORIDE 107 MEQ/L (99-109); GFR ESTIMATE (CALCULATED) 34 mL/min/; GLUCOSE 127 mg/dL (70-99); POTASSIUM 4.7 MEQ/L (3.7-5.4); SAMPLE HEMOLYSIS CHECK 0; SAMPLE ICTERIC CHECK 0; SAMPLE LIPEMIA CHECK 0; SODIUM 140 MEQ/L (136-147); UREA NITROGEN (BUN) 70 mg/dL (9-23)
[2016-09-23 12:26] LABS: BASE EXCESS 0.5 mEq/L (-3 to +3); BICARBONATE 26.5 mEq/L (22-26); CARBOXY HGB 1.6 % (0-5); COMMENTS - BLOOD GASES +C; DEVICE NC; METHEMOGLOBIN 1.2 % (0-1.5); O2 FLOW 5 L/MIN; PCO2 48 mm Hg (35-45); PO2 66 mm Hg (80-100); SITE RR +A; TOTAL RESP RATE 20 resp/min; pH 7.35 (7.35-7.45)
[2016-09-23 12:58] LABS: EOSINOPHIL COUNT 0.1 K/uL (0-0.3); HEMATOCRIT 35.2 % (36.0-46.0); IMMATURE GRANULOCYTE (%) 0.4 % (0.0-0.7); INSTRUMENT ABS NEUTROPHIL CT 5.2 K/uL; LYMPHOCYTE COUNT 1.8 K/uL (1.0-2.8); MCH 24.5 PG (29.0-34.0); MCHC 29.8 G/DL (30.0-36.0); MCV 82.1 FL (83-99); MEAN PLAT.VOLUME 11.9 uM^3 (9.5-12.4); MONOCYTE COUNT 1.1 K/uL (0-0.8); NEUTROPHIL (%) 62.8 % (45-76); NEUTROPHIL COUNT 5.2 K/uL (1.8-6.4); PLATELET COUNT 148 K/uL (156-360); RBC DIS.WIDTH-CV 17.7 % (11.8-14.6); RBC DIS.WIDTH-SD 53.1 % (39-53); RED BLOOD COUNT 4.29 M/uL (3.80-5.20); WHITE BLOOD COUNT 8.2 K/uL (4.1-10.2)
[2016-09-23 13:44] LABS: ALKALINE PHOSPHATASE 122 IU/L (3-129); ANION GAP 9 MEQ/L (2-14); CHLORIDE 107 MEQ/L (99-109); GFR ESTIMATE (CALCULATED) 36 mL/min/; GLUCOSE 140 mg/dL (70-99); POTASSIUM 4.4 MEQ/L (3.7-5.4); SAMPLE HEMOLYSIS CHECK 0; SAMPLE ICTERIC CHECK 0; SAMPLE LIPEMIA CHECK 0; SODIUM 141 MEQ/L (136-147); TOTAL BILIRUBIN 0.5 MG/DL (0.0-1.0); UREA NITROGEN (BUN) 69 mg/dL (9-23)
[2016-09-23 13:45] LABS: TROP-I INTERPRETATION NEGATIVE; TROPONIN-I 0.02 ng/mL (0.0-0.30)
[2016-09-24 03:34] VITALS: BP 149/66
[2016-09-24 06:19] LABS: POINT-OF-CARE METER ID UU13113725
[2016-09-24 06:59] VITALS: BP 168/71
[2016-09-24 07:54] LABS: ANION GAP 10 MEQ/L (2-14); CHLORIDE 109 MEQ/L (99-109); POTASSIUM 4.3 MEQ/L (3.7-5.4); SAMPLE HEMOLYSIS CHECK 0; SAMPLE ICTERIC CHECK 0; SAMPLE LIPEMIA CHECK 0; SODIUM 143 MEQ/L (136-147)
[2016-09-24 07:59] LABS: GFR ESTIMATE (CALCULATED) 34 mL/min/; GLUCOSE 132 mg/dL (70-99); UREA NITROGEN (BUN) 75 mg/dL (9-23)
[2016-09-24 10:18] VITALS: BP 152/70
[2016-09-24 16:28] LABS: POINT-OF-CARE METER ID UU13113725
[2016-09-24 16:42] VITALS: BP 169/75
[2016-09-24 19:25] VITALS: BP 169/75
[2016-09-24 21:46] LABS: POINT-OF-CARE METER ID UU13113725
[2016-09-25] VITALS (7 sets, daily range): BP systolic 118–177; BP diastolic 60–79
[2016-09-25 08:25] LABS: ANION GAP 9 MEQ/L (2-14); CHLORIDE 109 MEQ/L (99-109); GFR ESTIMATE (CALCULATED) 34 mL/min/; GLUCOSE 110 mg/dL (70-99); POTASSIUM 4.1 MEQ/L (3.7-5.4); SAMPLE HEMOLYSIS CHECK 0; SAMPLE ICTERIC CHECK 0; SAMPLE LIPEMIA CHECK 0; SODIUM 143 MEQ/L (136-147); UREA NITROGEN (BUN) 79 mg/dL (9-23)
[2016-09-25 15:12] LABS: TYPE OF FLUID PLEURAL
[2016-09-25 16:00] LABS: BODY FLUID LDH 56 IU/L; BODY FLUID PROTEIN 3.2 G/DL
[2016-09-25 16:01] LABS: BODY FLUID EOSINOPHILS 0 % (0-25); BODY FLUID RBC'S 1000 /MM^3 (0-100); BODY FLUID WBC'S 622 /MM^3 (0-500); MONONUCLEAR WBC'S 50 %; POLYNUCLEAR WBC'S 50 % (0-25)
[2016-09-26 03:35] VITALS: BP 172/81
[2016-09-26 06:02] LABS: POINT-OF-CARE METER ID UU13113725
[2016-09-26 06:45] VITALS: BP 185/84
[2016-09-26 07:40] LABS: ANION GAP 9 MEQ/L (2-14); CHLORIDE 110 MEQ/L (99-109); GFR ESTIMATE (CALCULATED) 39 mL/min/; GLUCOSE 116 mg/dL (70-99); POTASSIUM 4.1 MEQ/L (3.7-5.4); SAMPLE HEMOLYSIS CHECK 0; SAMPLE ICTERIC CHECK 0; SAMPLE LIPEMIA CHECK 0; SODIUM 146 MEQ/L (136-147); UREA NITROGEN (BUN) 68 mg/dL (9-23)
[2016-09-26 11:19] VITALS: BP 194/88
[2016-09-26 11:28] LABS: POINT-OF-CARE METER ID UU13113725
[2016-09-26 12:13] VITALS: BP 198/95
[2016-09-26 15:06] VITALS: BP 144/65
[2016-09-26 20:15] VITALS: BP 168/74
[2016-09-26 22:00] LABS: POINT-OF-CARE METER ID UU13113725
[2016-09-27] VITALS (9 sets, daily range): BP systolic 145–226; BP diastolic 67–106
[2016-09-27 05:38] LABS: POINT-OF-CARE METER ID UU13113725
[2016-09-27 16:37] LABS: POINT-OF-CARE METER ID UU13113725
[2016-09-28] VITALS (7 sets, daily range): BP systolic 149–188; BP diastolic 78–84
[2016-09-28 07:04] LABS: ANION GAP 8 MEQ/L (2-14); CHLORIDE 111 MEQ/L (99-109); GFR ESTIMATE (CALCULATED) 47 mL/min/; GLUCOSE 111 mg/dL (70-99); POTASSIUM 3.9 MEQ/L (3.7-5.4); SAMPLE HEMOLYSIS CHECK 0; SAMPLE ICTERIC CHECK 0; SAMPLE LIPEMIA CHECK 0; SODIUM 147 MEQ/L (136-147); UREA NITROGEN (BUN) 60 mg/dL (9-23)
[2016-09-28 11:29] LABS: POINT-OF-CARE METER ID UU13113725
[2016-09-28 16:33] LABS: POINT-OF-CARE METER ID UU13113725
[2016-09-28 21:03] LABS: POINT-OF-CARE METER ID UU13113725
[2016-09-29 03:24] VITALS: BP 135/64
[2016-09-29 06:44] LABS: POINT-OF-CARE METER ID UU13113725
[2016-09-29 07:44] VITALS: BP 150/67
[2016-09-29 09:44] VITALS: BP 188/82
[2016-09-29 11:15] VITALS: BP 155/65
[2016-09-29 11:50] LABS: POINT-OF-CARE METER ID UU13113725
[2016-09-29 13:05] VITALS: BP 164/74
[2016-09-29] MEDS ORDERED: FUROSEMIDE20 MG PO (15:00)
[2016-09-29] MEDS ORDERED: HYDRALAZINE HC100 MG PO (15:00)
[2016-09-29] MEDS ORDERED: LOSARTAN POTAS100 MG PO (15:00)
[2016-09-29] MEDS ORDERED: HYDROCHLOROTHIA25 MG PO (15:00)
[2016-09-29] MEDS ORDERED: TYLENOL REGULA325 MG PO (15:00)
[2016-09-29 16:55] VITALS: BP 153/63
[2016-09-29 17:15] LABS: POINT-OF-CARE METER ID UU13113725
== END 2016-09-29 18:14 | DRG 291 ==
LOC: EME 08:43 → EDOF 13:20 → 2EAST 13:20 → 5EAST 13:20 → 2EAST 18:00 → 5EAST 09-20 16:55
PROVIDERS: Emergency Medicine; Hospitalist; Internal Medicine; Internal Medicine Cardiovascular Disease; Internal Medicine Pulmonary Disease
PROC: 0W993ZZ Drainage of Right Pleural Cavity, Percutaneous Approach (ICD-10-PCS; principal; 2016-09-25)
DX: I13.0 Hypertensive heart and chronic kidney disease with heart failure and stage 1 through stage 4 chronic kidney disease, or unspecified chronic kidney disease (principal); I50.33 Acute on chronic diastolic (congestive) heart failure; J18.9 Pneumonia, unspecified organism; G93.41 Metabolic encephalopathy; I49.5 Sick sinus syndrome; I44.1 Atrioventricular block, second degree; E86.0 Dehydration; J98.11 Atelectasis; N18.3 Chronic kidney disease, stage 3 (moderate); L08.9 Local infection of the skin and subcutaneous tissue, unspecified; E11.22 Type 2 diabetes mellitus with diabetic chronic kidney disease; I25.10 Atherosclerotic heart disease of native coronary artery without angina pectoris; I48.0 Paroxysmal atrial fibrillation; E78.5 Hyperlipidemia, unspecified; G47.33 Obstructive sleep apnea (adult) (pediatric); E66.01 Morbid (severe) obesity due to excess calories; Z68.42 Body mass index [BMI] 45.0-49.9, adult; I25.2 Old myocardial infarction; Z95.1 Presence of aortocoronary bypass graft; Z89.612 Acquired absence of left leg above knee; Z98.84 Bariatric surgery status; Z79.01 Long term (current) use of anticoagulants
CPT/HCPCS: 36600; 70450; 70490; 71010; 71250; 73030; 73130; 74176; 80048; 80053; 81003; 82140; 82803; 82945; 82948; 83615 91; 83880; 84157; 84439; 84443; 84484; 85025; 85610; 85730; 87040; 87070; 87075; 87205; 88108; 88305; 89051; 92526 GN; 92610 GN; 93005; 93041; 94799; 99202; 99281; 99285; J0360; J0696; J1815; J1940; J2543; J3370; J7030; J7042; J7050

== ENCOUNTER 2016-11-25 08:30 | Inpatient (IN) | payer OTHER ==
[~2016-11-25] VITALS: Ht 162.6 cm; Wt 108.7 kg
[~2016-11-25 08:30] MED LIST changes: +DOXEPIN HCL25 MG PO; +FUROSEMIDE20 MG PO; +FUROSEMIDE40 MG PO; +HYDRALAZINE HC100 MG PO; +HYDROCHLOROTHIA25 MG PO; +KLOR-CON M1010 MEQ PO; +LOSARTAN POTAS100 MG PO; +METOPROLOL TART25 MG PO; +RISPERDAL0.25 MG PO; +ZOLOFT25 MG PO
[2016-11-25 09:05] LABS: POINT-OF-CARE METER ID UU13113702; POINT-OF-CARE USER ID NUTJNM
[2016-11-25 09:21] LABS: ADD MIUA? YES; BILIRUBIN NEGATIVE; BLOOD SMALL; COLOR YELLOW ((YELLOW)); GLUCOSE (STRIP) 50; KETONES NEGATIVE; LEUKOCYTES SMALL; NITRITE NEGATIVE; PROTEIN (STRIP) >=500; SPECIFIC GRAVITY 1.011 (1.000-1.030); UROBILINOGEN 0.2 MG/DL (0.2-1.0)
[2016-11-25 09:30] LABS: EOSINOPHIL (%) 3.9 % (0-5); EOSINOPHIL COUNT 0.3 K/uL (0-0.3); HEMATOCRIT 33.6 % (36.0-46.0); IMMATURE GRANULOCYTE (%) 0.1 % (0.0-0.7); INSTRUMENT ABS NEUTROPHIL CT 4.1 K/uL; LYMPHOCYTE COUNT 2.4 K/uL (1.0-2.8); MCH 24.4 PG (29.0-34.0); MCV 78.9 FL (83-99); MEAN PLAT.VOLUME 11.8 uM^3 (9.5-12.4); MONOCYTE (%) 8.2 % (3-12); MONOCYTE COUNT 0.6 K/uL (0-0.8); NEUTROPHIL (%) 55.2 % (45-76); NEUTROPHIL COUNT 4.1 K/uL (1.8-6.4); PLATELET COUNT 191 K/uL (156-360); RBC DIS.WIDTH-CV 19.2 % (11.8-14.6); RBC DIS.WIDTH-SD 54.6 % (39-53); WHITE BLOOD COUNT 7.5 K/uL (4.1-10.2)
[2016-11-25 09:32] LABS: RED BLOOD COUNT 4.26 M/uL (3.80-5.20)
[2016-11-25 09:39] LABS: BACTERIA RARE /HPF; EPITHELIAL CELLS NONE SEEN /HPF; HYALINE CASTS 0-5 /LPF; MUCUS TRACE /LPF; UCUL ADDED? YES; WHITE BLOOD CELLS 20-30 /HPF (0-5)
[2016-11-25 09:46] LABS: INTER. NORMALIZED RATIO 1.5; PROTHROMBIN TIME 16.6 SEC (10.2-12.9)
[2016-11-25 09:52] LABS: CHLORIDE 109 mEq/L (99-109); SODIUM 144 mEq/L (136-147)
[2016-11-25 09:54] LABS: GLUCOSE 121 mg/dL (70-99); PTT 38.4 SEC (25-37)
[2016-11-25 09:56] LABS: ANION GAP 12 MEQ/L (2-14); TOTAL BILIRUBIN 0.6 mg/dL (0.0-1.0)
[2016-11-25 09:57] LABS: TROP-I INTERPRETATION NEGATIVE; TROPONIN-I 0.04 ng/mL (0.0-0.30)
[2016-11-25 09:58] LABS: ALKALINE PHOSPHATASE 121 IU/L (3-129); GFR ESTIMATE (CALCULATED) 43 mL/min/
[2016-11-25 09:59] LABS: UREA NITROGEN (BUN) 58 mg/dL (9-23)
[2016-11-25 10:01] LABS: CREATINE KINASE 42 IU/L (1-294); TOTAL CK 42 IU/L (1-294)
[2016-11-25 10:07] LABS: CK-MB 1.9 ng/mL (0.0-4.9)
[2016-11-25 11:21] LABS: POINT-OF-CARE METER ID UU13113702; POINT-OF-CARE USER ID NUTJNM
[2016-11-25 11:23] LABS: BASE EXCESS 0.3 mEq/L (-3 to +3); BICARBONATE 25.4 mEq/L (22-26); CARBOXY HGB 1.2 % (0-5); METHEMOGLOBIN 1.3 % (0-1.5); PO2 99 mm Hg (80-100); pH 7.39 (7.35-7.45)
[2016-11-25 11:24] LABS: COMMENTS - BLOOD GASES A+C+; DEVICE NC; O2 FLOW 2 L/MIN; PCO2 42 mm Hg (35-45); SITE LR; TOTAL RESP RATE 12 resp/min
[2016-11-25] MEDS ORDERED: LOW DOSE ASPIRI81 M1 PO (12:25)
[2016-11-25] MEDS ORDERED: SINEQUAN50 MG PO (12:26)
[2016-11-25] MEDS ORDERED: LIPITOR10 MG PO (12:26)
[2016-11-25] MEDS ORDERED: LASIX40 MG PO (12:29)
[2016-11-25] MEDS ORDERED: LYRICA50 MG PO (12:30)
[2016-11-25] MEDS ORDERED: COZAAR100 MG PO (12:30)
[2016-11-25] MEDS ORDERED: ZANTAC150 MG PO (12:31)
[2016-11-25] MEDS ORDERED: ZOLOFT50 MG PO (12:31)
[2016-11-25] MEDS ORDERED: ASPERCREME1 EACH TP (12:32)
[2016-11-25] MEDS ORDERED: CATAPRES0.2 MG PO (12:33)
[2016-11-25] MEDS ORDERED: ELIQUIS5 MG PO (12:34)
[2016-11-25] MEDS ORDERED: IMDUR60 MG PO (12:34)
[2016-11-25] MEDS ORDERED: BACLOFEN10 MG PO (12:35)
[2016-11-25] MEDS ORDERED: FEOSOL325 MG PO (12:36)
[2016-11-25] MEDS ORDERED: APRESOLINE100 MG PO (12:37)
[2016-11-25] MEDS ORDERED: NOVOLOG PE100 UNITS/ SC (12:38)
[2016-11-25] MEDS ORDERED: DULCOLAX10 MG PR (12:39)
[2016-11-25] MEDS ORDERED: SALINE MIST45 ML BOTH NARES (12:39)
[2016-11-25] MEDS ORDERED: FLEET ENEMA-AD118 ML PR (12:39)
[2016-11-25] MEDS ORDERED: MILK OF MAGN PO (12:40)
[2016-11-25] MEDS ORDERED: NITROSTAT0.4 MG SL (12:41)
[2016-11-25] MEDS ORDERED: TYLENOL REGULA325 MG PO (12:41)
[2016-11-25 18:07] LABS: TROP-I INTERPRETATION NEGATIVE; TROPONIN-I 0.05 ng/mL (0.0-0.30)
[2016-11-26 07:16] VITALS: BP 215/80
[2016-11-26 09:00] VITALS: BP 180/55
[2016-11-26 16:07] VITALS: BP 181/78
[2016-11-27 00:49] VITALS: BP 158/70
[2016-11-27 05:26] VITALS: BP 188/86
[2016-11-27 07:20] VITALS: BP 186/94
[2016-11-27 16:21] VITALS: BP 178/84
[2016-11-27 20:10] LABS: METH RESISTANT S AUREUS PCR NEGATIVE (NEGATIVE)
[2016-11-27 20:20] LABS: PROBE CHECK PASS; SPECIMEN PROCESSING CONTROL PASS
[2016-11-27 21:23] LABS: POINT-OF-CARE METER ID UU13113725
[2016-11-27 23:39] VITALS: BP 182/71
[2016-11-28 05:27] VITALS: BP 172/68
[2016-11-28 06:09] LABS: POINT-OF-CARE METER ID UU13113725
[2016-11-28 07:24] VITALS: BP 133/80
[2016-11-28 15:53] LABS: POINT-OF-CARE METER ID UU13113725
[2016-11-28 17:17] VITALS: BP 210/114
[2016-11-28 17:18] VITALS: BP 210/102
[2016-11-28 17:53] VITALS: BP 186/90
[2016-11-28 18:35] VITALS: BP 182/88
[2016-11-29] VITALS (7 sets, daily range): BP systolic 139–197; BP diastolic 50–90
[2016-11-29 06:53] LABS: POINT-OF-CARE METER ID UU13113725
[2016-11-29 17:34] LABS: POINT-OF-CARE METER ID UU13113803
[2016-11-30] VITALS (7 sets, daily range): BP systolic 160–189; BP diastolic 70–91
[2016-11-30 08:21] LABS: POINT-OF-CARE USER ID ENVKC36
[2016-11-30 11:50] LABS: POINT-OF-CARE METER ID UU13113698; POINT-OF-CARE USER ID ENVKC36
[2016-11-30 17:00] LABS: POINT-OF-CARE USER ID ENVKC36
[2016-11-30 23:18] LABS: POINT-OF-CARE METER ID UU13113781
[2016-12-01 02:48] VITALS: BP 164/97
[2016-12-01 05:35] LABS: POINT-OF-CARE METER ID UU13113698
[2016-12-01 07:06] LABS: MCH 25.5 PG (29.0-34.0); MCHC 30.3 G/DL (30.0-36.0); MEAN PLAT.VOLUME 11.4 uM^3 (9.5-12.4); PLATELET COUNT 141 K/uL (156-360); RBC DIS.WIDTH-CV 21.1 % (11.8-14.6); RBC DIS.WIDTH-SD 63.2 % (39-53); RED BLOOD COUNT 4.15 M/uL (3.80-5.20); WHITE BLOOD COUNT 10.8 K/uL (4.1-10.2)
[2016-12-01 07:09] LABS: MCV 84.3 FL (83-99)
[2016-12-01 07:21] LABS: ANION GAP 12 MEQ/L (2-14); CHLORIDE 113 MEQ/L (99-109); GFR ESTIMATE (CALCULATED) 29 mL/min/; GLUCOSE 186 mg/dL (70-99); POTASSIUM 4.4 MEQ/L (3.7-5.4); SAMPLE HEMOLYSIS CHECK 0; SAMPLE ICTERIC CHECK 0; SAMPLE LIPEMIA CHECK 0; SODIUM 143 MEQ/L (136-147); UREA NITROGEN (BUN) 62 mg/dL (9-23)
[2016-12-01 07:30] VITALS: BP 182/82
[2016-12-01 08:01] LABS: POINT-OF-CARE METER ID UU13113803; POINT-OF-CARE USER ID NUTSLF44
[2016-12-01 11:51] LABS: POINT-OF-CARE METER ID UU13113698
[2016-12-01 12:00] VITALS: BP 184/91
[2016-12-01 16:00] VITALS: BP 189/87
[2016-12-01 16:47] LABS: POINT-OF-CARE METER ID UU13113698; POINT-OF-CARE USER ID NUTSLF44
[2016-12-01 19:11] VITALS: BP 178/98
[2016-12-01 21:06] LABS: POINT-OF-CARE METER ID UU13113803
[2016-12-01 23:31] VITALS: BP 192/100
[2016-12-02] VITALS (8 sets, daily range): BP systolic 168–203; BP diastolic 78–98
[2016-12-02 05:10] LABS: HEMATOCRIT 36.8 % (36.0-46.0); MCH 25.1 PG (29.0-34.0); MCHC 30.4 G/DL (30.0-36.0); MCV 82.3 FL (83-99); PLATELET COUNT 152 K/uL (156-360); RBC DIS.WIDTH-CV 21.1 % (11.8-14.6); RBC DIS.WIDTH-SD 61.4 % (39-53); RED BLOOD COUNT 4.47 M/uL (3.80-5.20); WHITE BLOOD COUNT 11.7 K/uL (4.1-10.2)
[2016-12-02 08:32] LABS: POINT-OF-CARE METER ID UU13113781; POINT-OF-CARE USER ID ENVKC36
[2016-12-02 12:15] LABS: POINT-OF-CARE METER ID UU13113781; POINT-OF-CARE USER ID ENVKC36
[2016-12-03] VITALS (9 sets, daily range): BP systolic 141–203; BP diastolic 75–97
[2016-12-03 06:04] LABS: EOSINOPHIL (%) 0.1 % (0-5); HEMATOCRIT 35.6 % (36.0-46.0); IMMATURE GRANULOCYTE (%) 0.8 % (0.0-0.7); IMMATURE GRANULOCYTE COUNT 0.1 K/uL; INSTRUMENT ABS NEUTROPHIL CT 8.3 K/uL; LYMPHOCYTE COUNT 1.3 K/uL (1.0-2.8); MCHC 31.2 G/DL (30.0-36.0); MCV 83.4 FL (83-99); MONOCYTE (%) 8.3 % (3-12); MONOCYTE COUNT 0.9 K/uL (0-0.8); NEUTROPHIL (%) 78.4 % (45-76); NEUTROPHIL COUNT 8.3 K/uL (1.8-6.4); NRBC (%) 0.2 /100 WBC (0-0); RBC DIS.WIDTH-CV 21.3 % (11.8-14.6); RBC DIS.WIDTH-SD 63.3 % (39-53); RED BLOOD COUNT 4.27 M/uL (3.80-5.20); WHITE BLOOD COUNT 10.6 K/uL (4.1-10.2)
[2016-12-03 06:15] LABS: ALKALINE PHOSPHATASE 83 IU/L (3-129); ANION GAP 9 MEQ/L (2-14); CHLORIDE 115 MEQ/L (99-109); GFR ESTIMATE (CALCULATED) 34 mL/min/; GLUCOSE 184 mg/dL (70-99); SAMPLE HEMOLYSIS CHECK 0; SAMPLE ICTERIC CHECK 0; SAMPLE LIPEMIA CHECK 0; SODIUM 146 MEQ/L (136-147); TOTAL BILIRUBIN 0.6 MG/DL (0.0-1.0); UREA NITROGEN (BUN) 70 mg/dL (9-23)
[2016-12-03 06:53] LABS: PLAT.SUFFICIENCY DECREASED; PLATELET COUNT 136 K/uL (156-360)
[2016-12-03 07:34] LABS: POINT-OF-CARE METER ID UU13113698
[2016-12-03 08:53] LABS: BASE EXCESS -1.1 mEq/L (-3 to +3); BICARBONATE 23.5 mEq/L (22-26); CARBOXY HGB 1.9 % (0-5); METHEMOGLOBIN 1.3 % (0-1.5); PCO2 38 mm Hg (35-45)
[2016-12-03 08:54] LABS: COMMENTS - BLOOD GASES A+C+; DEVICE NC; O2 FLOW 4 L/MIN; PO2 61 mm Hg (80-100); SITE LR; TOTAL RESP RATE 22 resp/min
[2016-12-03 11:05] LABS: POINT-OF-CARE METER ID UU13113698
[2016-12-03 16:00] LABS: POINT-OF-CARE METER ID UU13113698
[2016-12-03 20:54] LABS: POINT-OF-CARE METER ID UU13113698
[2016-12-04 03:30] VITALS: BP 193/86
[2016-12-04 07:17] LABS: ANION GAP 11 MEQ/L (2-14); CHLORIDE 114 MEQ/L (99-109); GFR ESTIMATE (CALCULATED) 31 mL/min/; POTASSIUM 3.4 MEQ/L (3.7-5.4); SAMPLE HEMOLYSIS CHECK 0; SAMPLE ICTERIC CHECK 0; SAMPLE LIPEMIA CHECK 0; SODIUM 146 MEQ/L (136-147); UREA NITROGEN (BUN) 71 mg/dL (9-23)
[2016-12-04 07:18] LABS: GLUCOSE 117 mg/dL (70-99)
[2016-12-04 07:59] LABS: POINT-OF-CARE USER ID NUTSLF44
[2016-12-04 08:00] VITALS: BP 150/91
[2016-12-04 11:09] VITALS: BP 157/95
[2016-12-04 12:13] LABS: POINT-OF-CARE USER ID NUTSLF44
[2016-12-04 15:12] VITALS: BP 155/87
[2016-12-04 17:22] LABS: POINT-OF-CARE USER ID NUTSLF44
[2016-12-04 20:00] VITALS: BP 179/86
[2016-12-04 23:55] VITALS: BP 171/80
[2016-12-05] VITALS (9 sets, daily range): BP systolic 161–198; BP diastolic 70–92
[2016-12-05 05:55] LABS: ANION GAP 9 MEQ/L (2-14); CHLORIDE 113 MEQ/L (99-109); GFR ESTIMATE (CALCULATED) 31 mL/min/; GLUCOSE 118 mg/dL (70-99); POTASSIUM 3.6 MEQ/L (3.7-5.4); SAMPLE HEMOLYSIS CHECK 0; SAMPLE ICTERIC CHECK 0; SAMPLE LIPEMIA CHECK 0; SODIUM 146 MEQ/L (136-147); UREA NITROGEN (BUN) 70 mg/dL (9-23)
[2016-12-06 04:00] VITALS: BP 200/84
[2016-12-06 05:57] LABS: ANION GAP 10 MEQ/L (2-14); CHLORIDE 113 MEQ/L (99-109); GFR ESTIMATE (CALCULATED) 34 mL/min/; GLUCOSE 126 mg/dL (70-99); POTASSIUM 3.8 MEQ/L (3.7-5.4); SAMPLE HEMOLYSIS CHECK 0; SAMPLE ICTERIC CHECK 0; SAMPLE LIPEMIA CHECK 0; SODIUM 145 MEQ/L (136-147); UREA NITROGEN (BUN) 66 mg/dL (9-23)
[2016-12-06 07:48] VITALS: BP 196/78
[2016-12-06 11:36] VITALS: BP 172/74
[2016-12-06 16:11] VITALS: BP 143/88
[2016-12-06 20:00] VITALS: BP 153/68
[2016-12-06 23:55] VITALS: BP 150/68
[2016-12-07 04:00] VITALS: BP 103/46
[2016-12-07 07:31] LABS: POINT-OF-CARE METER ID UU13113803
[2016-12-07 08:35] VITALS: BP 185/75
[2016-12-07 10:19] VITALS: BP 110/56
[2016-12-07 10:26] LABS: ANION GAP 8 MEQ/L (2-14); CHLORIDE 112 MEQ/L (99-109); POTASSIUM 3.8 MEQ/L (3.7-5.4); SAMPLE HEMOLYSIS CHECK 0; SAMPLE ICTERIC CHECK 0; SAMPLE LIPEMIA CHECK 0; SODIUM 143 MEQ/L (136-147)
[2016-12-07 10:31] LABS: GFR ESTIMATE (CALCULATED) 31 mL/min/; GLUCOSE 155 mg/dL (70-99); UREA NITROGEN (BUN) 62 mg/dL (9-23)
[2016-12-07 11:13] LABS: POINT-OF-CARE METER ID UU13113803
[2016-12-07 12:26] VITALS: BP 142/60
[2016-12-07] MEDS ORDERED: LONITEN2.5 MG PO (16:20)
[2016-12-07] MEDS ORDERED: COZAAR100 MG PO (16:23)
[2016-12-07] MEDS ORDERED: LOPRESSOR50 MG PO (16:25)
[2016-12-07] MEDS ORDERED: LEVEMIR100 UNIT/2 SC (16:26)
[2016-12-07] MEDS ORDERED: CLONIDINE1 EAC2 TD (16:28)
[2016-12-07 16:30] VITALS: BP 163/72
[2016-12-07 16:34] LABS: POINT-OF-CARE METER ID UU13113803
== END 2016-12-07 19:50 | DRG 242 ==
LOC: EME 08:30 → 5EAST 13:50 → EDOF 13:50 → ENRESERV 14:02 → 5EAST 17:03 → ENRESERV 11-29 14:35 → 5EAST 11-29 14:59 → 4EAST 11-29 16:50
PROVIDERS: Emergency Medicine; Family Medicine; Internal Medicine; Internal Medicine Cardiovascular Disease; Internal Medicine Infectious Disease
DX: I49.5 Sick sinus syndrome (principal); I44.1 Atrioventricular block, second degree; G93.41 Metabolic encephalopathy; N39.0 Urinary tract infection, site not specified; I13.0 Hypertensive heart and chronic kidney disease with heart failure and stage 1 through stage 4 chronic kidney disease, or unspecified chronic kidney disease; N18.3 Chronic kidney disease, stage 3 (moderate); E11.22 Type 2 diabetes mellitus with diabetic chronic kidney disease; I50.32 Chronic diastolic (congestive) heart failure; R13.10 Dysphagia, unspecified; I48.0 Paroxysmal atrial fibrillation; I48.2 Chronic atrial fibrillation; E66.01 Morbid (severe) obesity due to excess calories; Z68.41 Body mass index [BMI] 40.0-44.9, adult; I25.10 Atherosclerotic heart disease of native coronary artery without angina pectoris; Z66 Do not resuscitate; Z51.5 Encounter for palliative care; E78.5 Hyperlipidemia, unspecified; F01.50 Vascular dementia, unspecified severity, without behavioral disturbance, psychotic disturbance, mood disturbance, and anxiety; I87.2 Venous insufficiency (chronic) (peripheral); J44.9 Chronic obstructive pulmonary disease, unspecified; I45.10 Unspecified right bundle-branch block; I35.0 Nonrheumatic aortic (valve) stenosis; G89.29 Other chronic pain; M54.2 Cervicalgia; I25.2 Old myocardial infarction; Z95.1 Presence of aortocoronary bypass graft; F41.9 Anxiety disorder, unspecified; Z98.84 Bariatric surgery status; Z89.612 Acquired absence of left leg above knee; Z79.01 Long term (current) use of anticoagulants; Z79.4 Long term (current) use of insulin; Z87.442 Personal history of urinary calculi
CPT/HCPCS: 36600; 70450; 71010; 72020; 77003; 80048; 80053; 80202; 81003; 82140; 82330; 82550; 82553; 82565; 82803; 82945; 82948; 83880; 84157; 84484; 84520; 85025; 85027; 85610; 85730; 87040; 87070; 87077; 87086 GA; 87186; 87205; 87641; 89051; 92526 GN; 92610 GN; 93005; 94799; 97530 GO; 97530 GP; 99281; 99285; C1785; C1892; C1894; C1898; J0360; J0461; J0690; J0696; J1200; J1630; J1644; J1815; J1940; J2250; J2270; J2405; J3010; J3370; J7030; J7050; S0020